=== PATIENT | male | born 1980 | race African-American/Black ===

== ENCOUNTER → 2019-02-26 | Outpatient (CLI) | payer OTHER ==
[~2019-02-26] MED LIST: PROHANCE 279.3MG/ML 15ML VIAL (A9576) As Ordered ONE
--- NOTE | 2019-02-26 15:52 | REP ---
MRI brain without and with IV contrast: History: Persistent left parietal headaches. Technique: Axial and sagittal imaging planes are utilized for T1 and T2-weighted scans. Sequences include spin-echo, fast spin echo, FLAIR, and diffusion weighted sequences. Gadolinium enhancement dose is 15 mL of intravenous ProHance. MRI findings: No bony calvarial lesion is seen. There is 6 mm of tonsillar ectopia. There is no buckling or compression of the spinal medullary junction. The lateral, third, and fourth ventricles are normal in size and position. Malik-white differentiation pattern is normal above and below the tentorium. Diffusion weighted scan show no evidence of restricted diffusion. There is no other evidence to suggest acute ischemia. There are a few scattered subcortical white matter foci of T2 hyperintensity in the frontal lobes bilaterally. These are nonspecific. There are a few dilated perivascular spaces in the basal ganglia bilaterally. This is a normal variant finding. No intracranial hemorrhage or mass lesion is seen. Postcontrast imaging shows enhancement in normal vasculature. No abnormal intracranial contrast enhancement is seen. Impression: Nonspecific foci of T2 hyperintensity in the subcortical white matter of the frontal lobes bilaterally. These can be seen in migraine suffers. 6 mm of tonsillar ectopia at the foramen magnum. Otherwise negative. Electronically Signed by Jim Vann MD 02/26/2019 08:34 P
== END ==
LOC: M RAD 10:56
PROVIDERS: ATTEND Thoracic Surgery (Cardiothoracic Vascular Surgery)
DX: R51 Headache (principal); G93.9 Disorder of brain, unspecified
CPT/HCPCS: 70553; A9576